=== PATIENT | male | born 1985 | race African-American/Black ===

== ENCOUNTER 2023-09-22 12:12 | Emergency (ER) | payer OTHER ==
[~2023-09-22] VITALS: Ht 188 cm; Wt 113.4 kg
[2023-09-22 12:54] VITALS: BP 161/119; TEMP 98.3; O2SAT 97
[2023-09-22] MEDS ORDERED: LIDO30AD10 TP (13:49)
[2023-09-22] MEDS ORDERED: HYDR-4303 PO (13:49)
[2023-09-22] MEDS ORDERED: KETOROLAC TROMETHAMINE 15 MG/ML VIAL ONE (13:57)
[2023-09-22] MEDS ORDERED: LIDOCAINE 5% (PATCH) 1 EA PATCH TP ONE (13:57)
[2023-09-22] MEDS: LIDOCAINE 5% (PATCH) 1 EA PATCH TP STA (14:05)
[2023-09-22] MEDS: KETOROLAC TROMETHAMINE 15 MG/ML VIAL IM ONE (14:14)
== END 2023-09-22 16:36 | disposition home or self-care (01) ==
LOC: ER 12:17
DX: M54.12 Radiculopathy, cervical region (principal); Z79.899 Other long term (current) drug therapy; Z60.2 Problems related to living alone
CPT/HCPCS: 99283; 96372; J1885

== ENCOUNTER 2023-10-03 09:19 | Emergency (ER) | payer OTHER ==
[~2023-10-03] VITALS: Ht 188 cm; Wt 113.4 kg
[~2023-10-03 09:19] MED LIST: HYDR-4303 PO; LIDO30AD10 TP
[2023-10-03] MEDS ORDERED: CYCL5TAB PO (10:37)
[2023-10-03] MEDS ORDERED: KETO10TA2 PO (10:37)
[2023-10-03] MEDS ORDERED: HYDR-4209 PO (10:37)
[2023-10-03 12:05] VITALS: BP 149/99; TEMP 98.2; O2SAT 99
== END 2023-10-03 12:06 | disposition home or self-care (01) ==
LOC: ER 09:26
DX: M54.12 Radiculopathy, cervical region (principal); Z60.2 Problems related to living alone